=== PATIENT | male | born 1960 | race Caucasian/White ===

== ENCOUNTER 2016-08-04 20:28 | Emergency (ER) | payer SELFPAY ==
[2016-08-04 20:34] VITALS: BP 163/108
--- NOTE | 2016-08-04 20:45 | EDM.PDOC ---
ED HPI GENERAL MEDICAL PROBLEM - General Chief Complaint: Chest Pain Stated Complaint: [facility] Time Seen by Provider: 08/04/16 20:28 Source of Information: Reports: Patient, RN Notes Reviewed History Limitations: Reports: No Limitations - History of Present Illness INITIAL COMMENTS - FREE TEXT/NARRATIVE: The patient is brought by EMS with a complaint of a sharp/stabbing sensation to the anterior aspect of his left axilla, as well as posterior head and neck pain , that began last night around 22:00. It has been waxing and waning since. He states that it is a pain, not a discomfort. He has not found any modifiers. He also reports some tingling and numbness of his entire left upper extremity that began around 19:30 tonight and resolved just as he arrived at the ED. he reports associated dyspnea, nausea, and anxiety. He states that he feels warm, but he has not been diaphoretic. He states that his left anterior axillary pain is the same as that that he experienced in 2013 when he was taken to the [facility] and found to have a 75% LAD lesion, which was stented. He acknowledges that he did not have any ECG or cardiac enzyme abnormalities at that time, therefore it is not clear that the patient's pain was due to a coronary lesion. He states that following his coronary stents, he was on Plavix for one year, and is now off all medications. Treatments [employer]: Reports: Aspirin, Nitroglycerin Left Chest Pain Score (Numeric/FACES): 10 - Related Data Allergies Allergy/AdvReac Type Severity Reaction Status Date / Time Penicillins Allergy Cannot Verified 08/04/16 20:39 Remember Home Meds: Home Meds Orphenadrine [Norflex] 1 tab PO Q12H #20 tab.er 08/05/16 [Rx] Past Medical History HEENT History: Reports: Impaired Vision Cardiovascular History: Reports: CAD - Past Surgical History HEENT Surgical History: Reports: Tonsillectomy Cardiovascular Surgical History: Reports: Coronary Artery Stent (x 1, LAD, 2013) Social & Family History - Family History Family Medical History: Noncontributory - Tobacco Use Smoking Status *Q: Never Smoker - Caffeine Use Caffeine Use: Reports: None - Alcohol Use Alcohol Use History: Yes Alcohol Use Frequency: Socially - Recreational Drug Use Recreational Drug Use: No - Living Situation & Occupation Living situation: Reports: Single, Alone Occupation: Employed ([employer] ED ROS GENERAL - Review of Systems Review Of Systems: See Below Constitutional: Reports: No Symptoms HEENT: Reports: No Symptoms Respiratory: Reports: No Symptoms Cardiovascular: Reports: No Symptoms Endocrine: Reports: No Symptoms GI/Abdominal: Reports: Diarrhea (today) : Reports: No Symptoms Musculoskeletal: Reports: No Symptoms Skin: Reports: No Symptoms Neurological: Reports: No Symptoms Psychiatric: Reports: No Symptoms Hematologic/Lymphatic: Reports: No Symptoms Immunologic: Reports: No Symptoms ED EXAM, GENERAL - Physical Exam Exam: See Below Exam Limited By: No Limitations General Appearance: Alert, WD/WN, Moderate Distress (In pain) Eye Exam: Bilateral Eye: Normal Inspection Ears: Normal External Exam, Hearing Grossly Normal Ear Exam: Bilateral Ear: Auricle Normal Nose: Normal Inspection, No Blood Throat/Mouth: Normal Inspection, Normal Lips, Normal Voice, No Airway Compromise Head: Atraumatic, Normocephalic Neck: Normal Inspection, Full Range of Motion Respiratory/Chest: No Respiratory Distress, Lungs Clear, Normal Breath Sounds, No Accessory Muscle Use, Other (Reproducible tenderness to palpation of the left anterior axilla, down the left side of his chest and, especially, under the left costal margin in the left upper quadrant.) Cardiovascular: Normal Peripheral Pulses, Regular Rate, Rhythm, No Gallop, No JVD, No Murmur, No Rub Peripheral Pulses: 4+: Radial (L), Radial (R) GI/Abdominal: Normal Bowel Sounds, Soft, No Organomegaly, No Distention, No Abnormal Bruit, No Mass, Tender (Left upper quadrant, as above. Nontender elsewhere.) (Male) Exam: Deferred Rectal (Males) Exam: Deferred Back Exam: Normal Inspection, Full Range of Motion, NT Extremities: Normal Inspection, Normal Range of Motion, No Pedal Edema, Normal Capillary Refill Neurological: Alert, Oriented, Normal Cognition, No Motor/Sensory Deficits Psychiatric: Anxious Skin Exam: Warm, Dry, Intact, Normal Color, No Rash Lymphatic: No Adenopathy EKG INTERPRETATION EKG Date: 08/04/16 Time: 20:35 Rhythm: other (Sinus tachycardia) Rate (beats/min): [address] [place]: normal P-wave: present QRS: normal ST-T: normal QT: normal Comparison: NA - no prior EKG Course - Vital Signs Last Recorded V/S: Last Vital Signs Temp 37.1 C 08/04/16 20:29 Pulse 104 H 08/04/16 20:29 Resp 14 08/04/16 20:29 BP 163/108 H 08/04/16 20:29 Pulse Ox 94 L 08/04/16 20:29 - Orders/Labs/Meds Orders: Active Orders 24 hr Category Date Time Status EKG Documentation Completion [RC] STAT Care 08/04/16 20:42 Active Obando Catheter Insertion [Insert Urinary Catheter] [OM. Care 08/05/16 00:30 Ordered PC] Q24H Urinary Catheter Assessment [RC] ASDIRECTED Care 08/05/16 00:23 Active Abdomen Pelvis w Cont [CT] Stat Exams 08/04/16 22:04 Taken Chest 2V [CR] Stat Exams 08/04/16 20:42 Taken Sodium Chloride 0.9% [Normal Saline] 1,000 ml Med 08/04/16 22:15 Active IV ASDIRECTED Medication Orders Sodium Chloride (Normal Saline) 1,000 mls @ 150 mls/hr IV ASDIRECTED TREY Last Admin: 08/04/16 22:12 Dose: 150 mls/hr Labs: Laboratory Tests 08/04/16 08/04/16 08/04/16 Range/Units 20:55 20:55 20:55 WBC 4.42 (4.23-9.07) K/mm3 RBC 4.83 (4.63-6.08) M/mm3 Hgb 15.5 (13.7-17.5) gm/L Hct 44.6 (40.1-51.0) % MCV 92.3 H (79.0-92.2) fl MCH 32.1 (25.7-32.2) pg MCHC 34.8 (32.2-35.5) g/dl RDW Std Deviation 42.5 (35.1-43.9) fL Plt Count 240 (163-337) K/mm3 MPV 9.7 (9.4-12.3) fl Neutrophils % (Manual) 59 (40-60) % Band Neutrophils % 2 (0-10) % Lymphocytes % (Manual) 31 (20-40) % Atypical Lymphs % 0 % Monocytes % (Manual) 5 (2-10) % Eosinophils % (Manual) 1 (0.8-7.0) % Basophils % (Manual) 2 H (0.2-1.2) Platelet Estimate Adequate Plt Morphology Comment Normal RBC Morph Comment Normal PT 10.0 (8.0-13.0) SECONDS INR 0.92 APTT 26 (22-36) SECONDS D-Dimer, Quantitative 0.47 (0.19-0.59) mg/L Sodium 140 (136-145) mEq/L Potassium 3.8 (3.5-5.1) mEq/L Chloride 104 (98-107) mEq/L Carbon Dioxide 27 (21-32) mEq/L Anion Gap 12.8 (5-15) BUN 4 L (7-18) mg/dL Creatinine 0.8 (0.7-1.3) mg/dL Est Cr Clr Drug Dosing 106.46 mL/min Estimated GFR (MDRD) > 60 (>60) mL/min BUN/Creatinine Ratio 5.0 L (14-18) Glucose 111 H (74-106) mg/dL Calcium 8.4 L (8.5-10.1) mg/dL Total Bilirubin 0.3 (0.2-1.0) mg/dL AST 59 H (15-37) U/L ALT 59 (16-63) U/L Alkaline Phosphatase 85 (46-116) U/L Troponin I < 0.017 (0.00-0.056) ng/mL C-Reactive Protein (<1.0) mg/dL B-Natriuretic Peptide (0-100) pg/mL Total Protein 7.8 (6.4-8.2) g/dl Albumin 3.4 (3.4-5.0) g/dl Globulin 4.4 gm/dL Albumin/Globulin Ratio 0.8 L (1-2) Lipase 196 (73-393) U/L Urine Color (Yellow) Urine Appearance (Clear) Urine pH (5.0-8.0) Ur Specific [place] (1.005-1.030) Urine Protein (Negative) Urine Glucose (UA) (Negative) Urine Ketones (Negative) Urine Occult Blood (Negative) Urine Nitrite (Negative) Urine Bilirubin (Negative) Urine Urobilinogen (0.2-1.0) Ur Leukocyte Esterase (Negative) Urine RBC (0-5) /hpf Urine WBC (0-5) /hpf Ur Epithelial Cells (0-5) /hpf Urine Bacteria (FEW) /hpf Urine Mucus (FEW) /hpf 08/04/16 08/04/16 08/05/16 Range/Units 20:55 20:55 00:38 WBC (4.23-9.07) K/mm3 RBC (4.63-6.08) M/mm3 Hgb (13.7-17.5) gm/L Hct (40.1-51.0) % MCV (79.0-92.2) fl MCH (25.7-32.2) pg MCHC (32.2-35.5) g/dl RDW Std Deviation (35.1-43.9) fL Plt Count (163-337) K/mm3 MPV (9.4-12.3) fl Neutrophils % (Manual) (40-60) % Band Neutrophils % (0-10) % Lymphocytes % (Manual) (20-40) % Atypical Lymphs % % Monocytes % (Manual) (2-10) % Eosinophils % (Manual) (0.8-7.0) % Basophils % (Manual) (0.2-1.2) Platelet Estimate Plt Morphology Comment RBC Morph Comment PT (8.0-13.0) SECONDS INR APTT (22-36) SECONDS D-Dimer, Quantitative (0.19-0.59) mg/L Sodium (136-145) mEq/L Potassium (3.5-5.1) mEq/L Chloride (98-107) mEq/L Carbon Dioxide (21-32) mEq/L Anion Gap (5-15) BUN (7-18) mg/dL Creatinine (0.7-1.3) mg/dL Est Cr Clr Drug Dosing mL/min Estimated GFR (MDRD) (>60) mL/min BUN/Creatinine Ratio (14-18) Glucose (74-106) mg/dL Calcium (8.5-10.1) mg/dL Total Bilirubin (0.2-1.0) mg/dL AST (15-37) U/L ALT (16-63) U/L Alkaline Phosphatase (46-116) U/L Troponin I (0.00-0.056) ng/mL C-Reactive Protein < 0.2 (<1.0) mg/dL B-Natriuretic Peptide < 15 (0-100) pg/mL Total Protein (6.4-8.2) g/dl Albumin (3.4-5.0) g/dl Globulin gm/dL Albumin/Globulin Ratio (1-2) Lipase (73-393) U/L Urine Color Yellow (Yellow) Urine Appearance Clear (Clear) Urine pH 7.5 (5.0-8.0) Ur Specific [place] 1.015 (1.005-1.030) Urine Protein Negative (Negative) Urine Glucose (UA) Negative (Negative) Urine Ketones Negative (Negative) Urine Occult Blood Negative (Negative) Urine Nitrite Negative (Negative) Urine Bilirubin Negative (Negative) Urine Urobilinogen 0.2 (0.2-1.0) Ur Leukocyte Esterase Negative (Negative) Urine RBC Not seen (0-5) /hpf Urine WBC 0-5 (0-5) /hpf Ur Epithelial Cells 0-5 (0-5) /hpf Urine Bacteria Few (FEW) /hpf Urine Mucus Few (FEW) /hpf Meds: Medications Generic Name Dose Route Start Last Admin Trade Name Freq PRN Reason Stop Dose Admin Sodium Chloride 1,000 mls @ 150 mls/hr 08/04/16 22:15 08/04/16 22:12 Normal Saline IV 150 mls/hr ASDIRECTED TREY Administration Discontinued Medications Generic Name Dose Route Start Last Admin Trade Name Freq PRN Reason Stop Dose Admin Acetaminophen/Butalbital/Caffeine 1 tab 08/05/16 01:06 08/05/16 01:27 Fioricet 325-50-40 Mg PO 08/05/16 01:07 1 tab ONETIME ONE Administration Diatrizoate Meglum/Diatrizoate Sod 90 ml 08/04/16 22:46 08/04/16 23:43 Gastrografin 37% PO 08/04/16 22:47 90 ml ONETIME ONE Administration Hydromorphone HCl 0.5 mg 08/04/16 22:05 08/04/16 22:15 Dilaudid IVPUSH 08/04/16 22:06 0.5 mg ONETIME ONE Administration Hydromorphone HCl Confirm 08/04/16 22:10 08/04/16 22:17 Dilaudid Administered 08/04/16 22:11 Not Given Dose 0.5 mg .ROUTE .STK-MED ONE Sodium Chloride Confirm 08/04/16 22:10 08/04/16 22:16 Normal Saline Administered 08/04/16 22:11 Not Given Dose 1,000 mls @ as directed .ROUTE .STK-MED ONE Iopamidol 125 ml 08/04/16 22:46 08/04/16 23:44 Isovue-300 (61%) IVPUSH 08/04/16 22:47 125 ml ONETIME ONE Administration Ondansetron HCl 4 mg 08/04/16 22:02 08/04/16 22:12 Zofran IVPUSH 08/04/16 22:03 4 mg ONETIME ONE Administration Ondansetron HCl Confirm 08/04/16 22:10 08/04/16 22:16 Zofran Administered 08/04/16 22:11 Not Given Dose 4 mg .ROUTE .STK-MED ONE Ondansetron HCl 4 mg 08/04/16 23:30 08/04/16 23:31 Zofran IVPUSH 08/04/16 23:31 4 mg ONETIME ONE Administration Sodium Chloride 10 ml 08/04/16 22:46 08/04/16 23:44 Saline Flush FLUSH 08/04/16 22:47 10 ml ONETIME ONE Administration - Radiology Interpretation Free Text/Narrative:: Two-view chest radiograph appears to be grossly normal. Cardiac silhouette is within normal limits. No pulmonary vascular congestion. No pleural effusions. No focal infiltrate. No pneumothorax. Formal read per the Radiologist pending. CT scan of the abdomen and pelvis with oral and IV contrast is read by [facility] as: 1. Eccentric bladder wall thickening nonspecific possibly cystitis. 2. Bilateral hydroureteronephrosis most likely related to distended urinary bladder. - Re-Assessments/Exams Free Text/Narrative Re-Assessment/Exam: 08/05/16 00:[address] scan of the abdomen and pelvis findings a large urinary bladder along with hydroureter and hydronephrosis. The patient urinated after the CT scan and states that he does not feel the need to void, however, the bladder scan is indicating >999 ml. I have ordered a Obando catheter to leg bag. We will send a urinalysis. 08/05/16 01:27 The patient was complaining of a headache and posterior neck pain when he initially arrived, however, he is now stating his headache is quite severe and bitemporal. He does not have anemia or elevated LFTs, as would be expected with temporal arteritis, however, he does have hypoalbuminemia of 3.4, which is very nonspecific, but which would be expected with temporal arteritis. I have ordered a CRP. In meantime, I have also ordered Norflex. 08/05/16 01:53 The CRP returned as <0.2. While this does not completely eliminate the possibility of temporal arteritis, it makes it highly unlikely. The patient's headache is most likely tension type. I'm going to discharge the patient home with an e-prescription for Norflex, to help with his tension headache and musculoskeletal chest wall pain a, and I will refer him to Dr. Montana for followup for his urinary retention. Departure - Departure Time of Disposition: 01:57 Disposition: Home, Self-Care 01 Condition: fair Clinical Impression: Musculoskeletal chest pain, Tension headache, Urinary retention - Discharge Information Referrals: Jordan Montana MD [Physician] - PCP,None [Primary Care Provider] - Theresa Lai PA-C [Physician Buyer Agent] - Forms: ED Department Discharge Additional Instructions: You were seen in the emergency room for pain in the left armpit area, that extended down to your lower left ribs, along with a headache and neck pain. Workup in the ER included blood work, a urinalysis, an ECG, a chest x-ray, a CT scan of your abdomen and pelvis, and a bladder scan. Your workup showed significant distention of your urinary bladder, likely due to an enlarged prostate. A Obando catheter was placed in your bladder, which allows your bladder to drain. Followup with the Urologist Dr. Montana at the next available appointment. Your headache, neck pain, and chest pain are most likely due to muscle tension. You have been started on the muscle relaxant Norflex. Take one tablet every 12 hours, as prescribed. You may followup with Theresa Lai in the clinic as needed. If any other problems, please do not hesitate to return to the ER. - My Orders Last 24 Hours: My Active Orders 08/04/16 20:42 EKG Documentation Completion [RC] STAT Chest 2V [CR] Stat 08/04/16 22:04 Abdomen Pelvis w Cont [CT] Stat 08/04/16 22:15 Sodium Chloride 0.9% [Normal Saline] 1,000 ml IV ASDIRECTED 08/05/16 00:23 Urinary Catheter Assessment [RC] ASDIRECTED 08/05/16 00:30 Obando Catheter Insertion [Insert Urinary Catheter] [OM.PC] Q24H - Assessment/Plan Last 24 Hours: My Active Orders 08/04/16 20:42 EKG Documentation Completion [RC] STAT Chest 2V [CR] Stat 08/04/16 22:04 Abdomen Pelvis w Cont [CT] Stat 08/04/16 22:15 Sodium Chloride 0.9% [Normal Saline] 1,000 ml IV ASDIRECTED 08/05/16 00:23 Urinary Catheter Assessment [RC] ASDIRECTED 08/05/16 00:30 Obando Catheter Insertion [Insert Urinary Catheter] [OM.PC] Q24H
[2016-08-04] MEDS ORDERED: Ondansetron 4 MG/2 ML SDV IVPUSH ONE ×2 (22:02→23:30)
[2016-08-04] MEDS ORDERED: HYDROmorphone 0.5 MG/0.5 ML Syringe IVPUSH ONE (22:05)
[2016-08-04] MEDS ORDERED: Ondansetron 4 MG/2 ML SDV ONE (22:10)
[2016-08-04] MEDS ORDERED: HYDROmorphone 0.5 MG/0.5 ML Syringe ONE (22:10)
[2016-08-04] MEDS ORDERED: Sodium Chloride 0.9% 1,000 ML ONE (22:10)
[2016-08-04] MEDS ORDERED: Sodium Chloride 0.9% 1,000 ML IV SCH (22:15)
[2016-08-04] MEDS ORDERED: Sodium Chloride 0.9% 10 ML Syringe FLUSH ONE (22:46)
[2016-08-04] MEDS ORDERED: Iopamidol 612 MG/ML 150 ML Bottle IVPUSH ONE (22:46)
[2016-08-04] MEDS ORDERED: Diatrizoate Meglumine/Diatrizoate Sodium 37% 120 ML Bottle PO ONE (22:46)
[2016-08-05] MEDS ORDERED: Acetaminophen/Butalbital/Caffeine 325-50-40 MG Tab PO ONE (01:06)
--- NOTE | 2016-08-05 09:49 | CT ---
CT abdomen and pelvis Technique: Multiple axial sections were obtained from above the dome of the diaphragm inferiorly through the pubic symphysis. Intravenous and oral contrast was utilized. Comparison: No previous abdominal imaging. Findings: Visualized lung bases show nothing acute. Diffuse fatty infiltration identified throughout the liver. Spleen appears within normal limits. Adrenal glands show no nodule. Pancreas is within normal limits. Gallbladder contains no calcified gallstones. Kidneys show contrast enhancement without mass. Bilateral hydronephrosis is seen. Dilated urine filled bladder is noted. Hydronephrosis likely relates to the bladder distention. Bladder wall thickening is seen. Delayed images show stasis of contrast within the renal pelvis with no contrast excreted in the ureters or bladder. Prostate calcifications are seen. Abdominal aorta shows atherosclerotic change without aneurysmal dilatation. No retroperitoneal adenopathy or mesenteric abnormalities are seen. No pelvic mass or adenopathy is seen. Bone window settings were reviewed which appear within normal limits for the patient's age. Impression: 1. Dilated bladder with urine. Findings felt compatible with bladder outlet obstruction. Bilateral hydronephrosis is seen likely relating to the bladder outlet obstruction. 2. Bladder wall thickening most likely relating to the chronic bladder outlet obstruction. 3. Other incidental findings as described above. Diagnostic code #3 I agree with preliminary report issued by [employer] (preliminary report dictated on 08/05/16, 1:04 AM Central Time)
--- NOTE | 2016-08-05 09:49 | CR ---
Chest: Two views of the chest were obtained. Comparison: No previous study. Heart size and mediastinum are normal. Lungs are clear. Bony structures appear unremarkable. Impression: 1. Nothing acute is identified on two-view chest x-ray. Diagnostic code #1
== END 2016-08-05 02:59 | disposition home or self-care (01) ==
LOC: JD.ED 20:28
DX: R07.89 Other chest pain (principal); G44.209 Tension-type headache, unspecified, not intractable; R33.9 Retention of urine, unspecified; R00.0 Tachycardia, unspecified; N13.30 Unspecified hydronephrosis; I25.10 Atherosclerotic heart disease of native coronary artery without angina pectoris; Z95.5 Presence of coronary angioplasty implant and graft; Z79.82 Long term (current) use of aspirin; Z79.899 Other long term (current) drug therapy; Z88.0 Allergy status to penicillin
CPT/HCPCS: 36415; 51702; 51798; 71020; 74177; 80053; 81001; 83690; 83880; 84484; 85025; 85379; 85610; 85730; 86140; 93005; 96361; 96374; 96375; 96376; 99285; A9270; J1170; J2405; J7040; J7050; Q9963; Q9967

== ENCOUNTER 2016-08-05 09:05 | Emergency (ER) | payer SELFPAY ==
[2016-08-05] MEDS ORDERED: Sodium Chloride 0.9% 10 ML Syringe FLUSH PRN (09:38)
--- NOTE | 2016-08-05 09:54 | EDM.PDOC ---
ED HPI GENERAL MEDICAL PROBLEM - General Chief Complaint: Genitourinary Problem Stated Complaint: ABD PAIN AND BLOOD IN URINE Time Seen by Provider: 08/05/16 09:27 Source of Information: Reports: Patient History Limitations: Reports: No Limitations - History of Present Illness INITIAL COMMENTS - FREE TEXT/NARRATIVE: The patient presents with chest pain and hematuria. He was here last night for chest pain and abdominal pain. His EKG and troponin were negative. On CT he was found to have a distended bladder and a moura cath was inserted. Early this morning he started having hematuria. He presents with the same. He has pain in his penis at times. He still has pain in his left chest. The chest pain has been there for a few days. It hurts to take a deep breath. He has no fever, cough, congestion or runny nose. He has no edema in his legs or pain in his legs. He says back in 2013. He had a stent placed in his LAD. Onset: Gradual Duration: Day(s): Location: Reports: Chest, Abdomen Quality: Reports: Sharp Severity: Moderate Improves with: Reports: None Worsens with: Reports: Breathing Associated Symptoms: Reports: Chest Pain. Denies: Cough, Fever/Chills, Nausea/ Vomiting, Shortness of Breath Left Chest Pain Score (Numeric/FACES): 10 Penis Pain Score (Numeric/FACES): 10 - Related Data Allergies Allergy/AdvReac Type Severity Reaction Status Date / Time Penicillins Allergy Cannot Verified 08/04/16 20:39 Remember Home Meds: Home Meds Orphenadrine [Norflex] 1 tab PO Q12H #20 tab.er 08/05/16 [Rx] Past Medical History HEENT History: Reports: Impaired Vision Cardiovascular History: Reports: CAD - Infectious Disease History Infectious Disease History: Reports: Chicken Pox, Measles - Past Surgical History HEENT Surgical History: Reports: Tonsillectomy Cardiovascular Surgical History: Reports: Coronary Artery Stent Social & Family History - Family History Family Medical History: Noncontributory - Tobacco Use Smoking Status *Q: Never Smoker Second Hand Smoke Exposure: No - Caffeine Use Caffeine Use: Reports: None - Recreational Drug Use Recreational Drug Use: No - Living Situation & Occupation Living situation: Reports: Single, Alone Occupation: Employed ([employer]) ED ROS GENERAL - Review of Systems Review Of Systems: See Below Constitutional: Reports: No Symptoms HEENT: Reports: No Symptoms Respiratory: Reports: No Symptoms Cardiovascular: Reports: Chest Pain Endocrine: Reports: No Symptoms GI/Abdominal: Reports: Abdominal Pain : Reports: Hematuria, Other (Pain in his penis) Musculoskeletal: Reports: No Symptoms ED EXAM, GI/ABD - Physical Exam Exam: See Below Exam Limited By: No Limitations General Appearance: Alert, No Apparent Distress Ears: Normal External Exam Nose: Normal Inspection Throat/Mouth: Normal Inspection Head: Atraumatic, Normocephalic Neck: Normal Inspection Respiratory/Chest: No Respiratory Distress, Lungs Clear, Normal Breath Sounds Cardiovascular: Regular Rate, Rhythm, No Edema, No Murmur GI/Abdominal: Soft, Non-Tender, No Organomegaly, No Mass Extremities: Normal Inspection Course - Vital Signs Last Recorded V/S: Last Vital Signs Temp 96.3 F 08/05/16 09:15 Pulse 113 H 08/05/16 09:15 Resp 20 08/05/16 09:15 BP 148/86 H 08/05/16 09:15 Pulse Ox 95 08/05/16 09:15 - Orders/Labs/Meds Orders: Active Orders 24 hr Category Date Time Status Bladder Irrigation [RC] ONETIME Care 08/05/16 09:39 Active Cardiac Monitoring [RC] . DIRECTED Care 08/05/16 09:38 Active EKG Documentation Completion [RC] STAT Care 08/05/16 09:39 Active Insert Urinary Catheter [OM.PC] Q24H Care 08/05/16 13:00 Ordered Peripheral IV Care [RC] . DIRECTED Care 08/05/16 09:39 Active Urinary Catheter Assessment [RC] ASDIRECTED Care 08/05/16 12:57 Active HYDROmorphone [Dilaudid] Med 08/05/16 13:25 Once 1 mg IVPUSH ONETIME ONE Sodium Chloride 0.9% [Saline Flush] Med 08/05/16 09:38 Active 10 ml FLUSH ASDIRECTED PRN Peripheral IV Insertion Adult [OM.PC] Stat Oth 08/05/16 09:38 Ordered Medication Orders Sodium Chloride (Saline Flush) 10 ml FLUSH ASDIRECTED PRN PRN Reason: Keep Vein Open Last Admin: 08/05/16 09:45 Dose: 10 ml Labs: Laboratory Tests 08/05/16 08/05/16 Range/Units 09:45 09:45 WBC 12.55 H (4.23-9.07) K/mm3 RBC 4.87 (4.63-6.08) M/mm3 Hgb 15.6 (13.7-17.5) gm/L Hct 45.0 (40.1-51.0) % MCV 92.4 H (79.0-92.2) fl MCH 32.0 (25.7-32.2) pg MCHC 34.7 (32.2-35.5) g/dl RDW Std Deviation 42.4 (35.1-43.9) fL Plt Count 223 (163-337) K/mm3 MPV 10.0 (9.4-12.3) fl Neut % (Auto) 90.3 H (34.0-67.9) % Lymph % (Auto) 4.0 L (21.8-53.1) % [place] % (Auto) 5.2 L (5.3-12.2) % Eos % (Auto) 0 L (0.8-7.0) Baso % (Auto) 0.3 (0.1-1.2) % Neut # (Auto) 11.34 H (1.78-5.38) K/mm3 Lymph # (Auto) 0.50 L (1.32-3.57) K/mm3 [place] # (Auto) 0.65 (0.30-0.82) K/mm3 Eos # (Auto) 0.00 L (0.04-0.54) K/mm3 Baso # (Auto) 0.04 (0.01-0.08) K/mm3 Manual Slide Review Normal smear Sodium 136 (136-145) mEq/L Potassium 3.6 (3.5-5.1) mEq/L Chloride 100 (98-107) mEq/L Carbon Dioxide 26 (21-32) mEq/L Anion Gap 13.6 (5-15) BUN 6 L (7-18) mg/dL Creatinine 1.0 (0.7-1.3) mg/dL Est Cr Clr Drug Dosing 85.17 mL/min Estimated GFR (MDRD) > 60 (>60) mL/min BUN/Creatinine Ratio 6.0 L (14-18) Glucose 155 H (74-106) mg/dL Calcium 8.3 L (8.5-10.1) mg/dL Total Bilirubin 0.9 (0.2-1.0) mg/dL AST 58 H (15-37) U/L ALT 59 (16-63) U/L Alkaline Phosphatase 86 (46-116) U/L Troponin I < 0.017 (0.00-0.056) ng/mL Total Protein 7.7 (6.4-8.2) g/dl Albumin 3.5 (3.4-5.0) g/dl Globulin 4.2 gm/dL Albumin/Globulin Ratio 0.8 L (1-2) Meds: Medications Generic Name Dose Route Start Last Admin Trade Name Freq PRN Reason Stop Dose Admin Sodium Chloride 10 ml 08/05/16 09:38 08/05/16 09:45 Saline Flush FLUSH 10 ml ASDIRECTED PRN Administration Keep Vein Open Discontinued Medications Generic Name Dose Route Start Last Admin Trade Name Freq PRN Reason Stop Dose Admin Hydromorphone HCl 1 mg 08/05/16 09:55 08/05/16 10:35 Dilaudid IVPUSH 08/05/16 09:56 1 mg ONETIME ONE Administration - Re-Assessments/Exams Free Text/Narrative Re-Assessment/Exam: 08/05/16 09:56 I have ordered an IV saline lock, dilaudid 1mg IV, bladder irrigation, labs, and EKG. 08/05/16 13:11 His WBC is elevated at 12.55. His Hgb is normal at 15.6. His glucose is elevated at 155. His AST is 58. His troponin is negative. 08/05/16 13:26 His EKG shows nothing acute. His CT from yesterday shows dilated bladder with urine. Findings felt compatible with bladder outlet obstruction. Bilateral hydronephrosis is seen likely relating to the bladder outlet obstruction. Bladder wall thickening most likely relating to the chronic bladder outlet obstruction. I had my nurse irrigate him a few times and he still had moderate hematuria. I will have her replace the moura with a irrigation catheter to do 3 way continuous irrigation. I ordered some dilaudid 1mg for the pain. I called out hospitalist Dr Rutledge and she would accept him but she felt it may be better for him to go to [facility] where they have urology. I called Dr Trevizo at [facility] and he accepted the patient. Departure - Departure Time of Disposition: 13:35 Disposition: DC/Tfer to Acute Hospital 02 Condition: fair Clinical Impression: Musculoskeletal chest pain, Urinary retention, Hematuria, Bladder wall thickening - Discharge Information Forms: ED Department Discharge - My Orders Last 24 Hours: My Active Orders 08/05/16 09:38 Cardiac Monitoring [RC] . DIRECTED Sodium Chloride 0.9% [Saline Flush] 10 ml FLUSH ASDIRECTED PRN Peripheral IV Insertion Adult [OM.PC] Stat 08/05/16 09:39 Bladder Irrigation [RC] ONETIME EKG Documentation Completion [RC] STAT Peripheral IV Care [RC] . DIRECTED 08/05/16 12:57 Urinary Catheter Assessment [RC] ASDIRECTED 08/05/16 13:00 Insert Urinary Catheter [OM.PC] Q24H 08/05/16 13:25 HYDROmorphone [Dilaudid] 1 mg IVPUSH ONETIME ONE - Assessment/Plan Last 24 Hours: My Active Orders 08/05/16 09:38 Cardiac Monitoring [RC] . DIRECTED Sodium Chloride 0.9% [Saline Flush] 10 ml FLUSH ASDIRECTED PRN Peripheral IV Insertion Adult [OM.PC] Stat 08/05/16 09:39 Bladder Irrigation [RC] ONETIME EKG Documentation Completion [RC] STAT Peripheral IV Care [RC] . DIRECTED 08/05/16 12:57 Urinary Catheter Assessment [RC] ASDIRECTED 08/05/16 13:00 Insert Urinary Catheter [OM.PC] Q24H 08/05/16 13:25 HYDROmorphone [Dilaudid] 1 mg IVPUSH ONETIME ONE
[2016-08-05] MEDS ORDERED: HYDROmorphone 1 MG/ML Syringe IVPUSH ONE ×2 (09:55→13:25)
[2016-08-05] MEDS ORDERED: Lidocaine 2% Jelly 10 ML Urojet MUCMEM ONE (14:06)
[2016-08-05] MEDS ORDERED: Lidocaine 2% Jelly 10 ML Urojet ONE (14:07)
[2016-08-05 15:43] VITALS: BP 126/87
== END 2016-08-05 14:44 ==
LOC: JD.ED 09:05
DX: R07.89 Other chest pain (principal); R33.9 Retention of urine, unspecified; R31.9 Hematuria, unspecified; N32.9 Bladder disorder, unspecified; Z88.0 Allergy status to penicillin
CPT/HCPCS: 36415; 51700; 51702; 51798; 80053; 84484; 85025; 93005; 96374; 96376; 99285; J1170; J7050; 99284

== ENCOUNTER 2016-08-21 11:05 | Emergency (ER) | payer SELFPAY ==
[2016-08-21] MEDS ORDERED: Sodium Chloride 0.9% 10 ML Syringe FLUSH PRN (11:14)
[2016-08-21] MEDS ORDERED: HYDROmorphone 0.5 MG/0.5 ML Syringe IVPUSH ONE ×2 (11:20→14:21)
[2016-08-21] MEDS ORDERED: LORazepam 1 MG Tab PO ONE (11:20)
--- NOTE | 2016-08-21 11:23 | EDM.PDOC ---
ED HPI GENERAL MEDICAL PROBLEM - General Chief Complaint: Chest Pain Stated Complaint: [facility] Time Seen by Provider: 08/21/16 11:45 Source of Information: Reports: Patient, EMS, RN Notes Reviewed - History of Present Illness INITIAL COMMENTS - FREE TEXT/NARRATIVE: 55-year-old male has been brought in by ambulance with upper abdominal pain, nausea vomiting and anterior chest discomfort radiating to his left arm. He had onset of these symptoms about one hour ago. He does have history of coronary artery disease, does have a stent that was placed about 3 years ago. He does have a urinary catheter at this time that was supposed to been removed about 2 days ago. He states he was unable to get a cab to go to [facility] to have that removed as planned and previously ordered. That history is a bit complicated in that he was evaluated apparently here at this hospital and found to have urinary retention about 2 weeks ago. Initially was initially treated with just a straight catheter but then started having hematuria. This became severe, he eventually was transferred to [facility] and states he was in the hospital for about 4 days apparently with bladder irrigation until the hematuria resolved. He then was sent home with the current indwelling [place] catheter. States that the catheter is very bothersome to him. He started or drink more alcohol last evening hoping to get some relief from the discomfort. He was not having chest pain last evening or during the night. He has not been coughing any more than usual. No fever or chills. Chest Pain Score (Numeric/FACES): 9 - Related Data Allergies Allergy/AdvReac Type Severity Reaction Status Date / Time Penicillins Allergy Cannot Verified 08/21/16 11:13 Remember Home Meds: Home Meds . [No Known Home Meds] 08/21/16 [History] Past Medical History HEENT History: Reports: Impaired Vision Cardiovascular History: Reports: CAD - Infectious Disease History Infectious Disease History: Reports: Chicken Pox, Measles - Past Surgical History HEENT Surgical History: Reports: Tonsillectomy Cardiovascular Surgical History: Reports: Coronary Artery Stent Social & Family History - Family History Family Medical History: Noncontributory - Tobacco Use Smoking Status *Q: Never Smoker Second Hand Smoke Exposure: No - Caffeine Use Caffeine Use: Reports: None - Recreational Drug Use Recreational Drug Use: No - Living Situation & Occupation Living situation: Reports: Single, Alone Occupation: Employed ([employer] [employer]) ED ROS GENERAL - Review of Systems Review Of Systems: See Below Constitutional: Denies: Fever, Chills, Diaphoresis HEENT: Denies: Sinus Problem, Throat Pain Respiratory: Denies: Shortness of Breath, Pleuritic Chest Pain, Cough Cardiovascular: Reports: Chest Pain (Radiating to left arm). Denies: Edema GI/Abdominal: Reports: Abdominal Pain (Upper abdomen), Nausea, Vomiting (Mainly dry heaves) Musculoskeletal: Reports: Shoulder Pain, Arm Pain. Denies: Leg Pain Skin: Reports: No Symptoms Neurological: Reports: Dizziness. Denies: Trouble Speaking ED EXAM, GENERAL - Physical Exam Exam: See Below General Appearance: Alert, Anxious, Moderate Distress Eye Exam: Bilateral Eye: PERRL Throat/Mouth: Normal Inspection, Normal Oropharynx Neck: Supple, Full Range of Motion Respiratory/Chest: No Respiratory Distress, Lungs Clear, Normal Breath Sounds Cardiovascular: Regular Rate, Rhythm GI/Abdominal: Tender (Mild tenderness upper mid abdomen). No: Guarding Back Exam: Normal Inspection Extremities: Normal Inspection, Normal Range of Motion. No: Pedal Edema Neurological: Alert, Oriented, No Motor/Sensory Deficits Skin Exam: Warm, Dry, Normal Color EKG INTERPRETATION EKG Date: 08/21/16 Rhythm: NSR [place]: normal P-wave: present QRS: normal ST-T: elevated (slight elevation ant. leads) Course - Vital Signs Last Recorded V/S: Last Vital Signs Temp 97.6 F 08/21/16 11:08 Pulse 81 08/21/16 15:43 Resp 16 08/21/16 15:43 BP 151/85 H 08/21/16 15:43 Pulse Ox 100 08/21/16 15:43 - Orders/Labs/Meds Orders: Active Orders 24 hr Category Date Time Status EKG 12 Lead [EKG Documentation Completion] [RC] STAT Care 08/21/16 11:15 Active Peripheral IV Care [RC] . DIRECTED Care 08/21/16 11:15 Active Peripheral IV Insertion Adult [OM.PC] Stat Oth 08/21/16 11:15 Ordered Labs: Laboratory Tests 08/21/16 08/21/16 08/21/16 Range/Units 11:13 11:13 11:15 WBC 6.23 (4.23-9.07) K/mm3 RBC 4.57 L (4.63-6.08) M/mm3 Hgb 14.5 (13.7-17.5) gm/L Hct 42.5 (40.1-51.0) % MCV 93.0 H (79.0-92.2) fl MCH 31.7 (25.7-32.2) pg MCHC 34.1 (32.2-35.5) g/dl RDW Std Deviation 43.0 (35.1-43.9) fL Plt Count 390 H (163-337) K/mm3 MPV 9.5 (9.4-12.3) fl Neut % (Auto) 77.5 H (34.0-67.9) % Lymph % (Auto) 13.2 L (21.8-53.1) % [place] % (Auto) 7.5 (5.3-12.2) % Eos % (Auto) 0.2 L (0.8-7.0) Baso % (Auto) 1.4 H (0.1-1.2) % Neut # (Auto) 4.83 (1.78-5.38) K/mm3 Lymph # (Auto) 0.82 L (1.32-3.57) K/mm3 [place] # (Auto) 0.47 (0.30-0.82) K/mm3 Eos # (Auto) 0.01 L (0.04-0.54) K/mm3 Baso # (Auto) 0.09 H (0.01-0.08) K/mm3 Sodium 140 (136-145) mEq/L Potassium 3.6 (3.5-5.1) mEq/L Chloride 101 (98-107) mEq/L Carbon Dioxide 24 (21-32) mEq/L Anion Gap 18.6 H (5-15) BUN 4 L (7-18) mg/dL Creatinine 0.9 (0.7-1.3) mg/dL Est Cr Clr Drug Dosing 94.63 mL/min Estimated GFR (MDRD) > 60 (>60) mL/min BUN/Creatinine Ratio 4.4 L (14-18) Glucose 131 H (74-106) mg/dL Calcium 8.8 (8.5-10.1) mg/dL Total Bilirubin 0.4 (0.2-1.0) mg/dL AST 56 H (15-37) U/L ALT 48 (16-63) U/L Alkaline Phosphatase 85 (46-116) U/L Troponin I < 0.017 (0.00-0.056) ng/mL Total Protein 7.7 (6.4-8.2) g/dl Albumin 3.3 L (3.4-5.0) g/dl Globulin 4.4 gm/dL Albumin/Globulin Ratio 0.8 L (1-2) Lipase 132 (73-393) U/L Ethyl Alcohol 0.06 (0.00) gm% 08/21/16 Range/Units 14:30 WBC (4.23-9.07) K/mm3 RBC (4.63-6.08) M/mm3 Hgb (13.7-17.5) gm/L Hct (40.1-51.0) % MCV (79.0-92.2) fl MCH (25.7-32.2) pg MCHC (32.2-35.5) g/dl RDW Std Deviation (35.1-43.9) fL Plt Count (163-337) K/mm3 MPV (9.4-12.3) fl Neut % (Auto) (34.0-67.9) % Lymph % (Auto) (21.8-53.1) % [place] % (Auto) (5.3-12.2) % Eos % (Auto) (0.8-7.0) Baso % (Auto) (0.1-1.2) % Neut # (Auto) (1.78-5.38) K/mm3 Lymph # (Auto) (1.32-3.57) K/mm3 [place] # (Auto) (0.30-0.82) K/mm3 Eos # (Auto) (0.04-0.54) K/mm3 Baso # (Auto) (0.01-0.08) K/mm3 Sodium (136-145) mEq/L Potassium (3.5-5.1) mEq/L Chloride (98-107) mEq/L Carbon Dioxide (21-32) mEq/L Anion Gap (5-15) BUN (7-18) mg/dL Creatinine (0.7-1.3) mg/dL Est Cr Clr Drug Dosing mL/min Estimated GFR (MDRD) (>60) mL/min BUN/Creatinine Ratio (14-18) Glucose (74-106) mg/dL Calcium (8.5-10.1) mg/dL Total Bilirubin (0.2-1.0) mg/dL AST (15-37) U/L ALT (16-63) U/L Alkaline Phosphatase (46-116) U/L Troponin I < 0.017 (0.00-0.056) ng/mL Total Protein (6.4-8.2) g/dl Albumin (3.4-5.0) g/dl Globulin gm/dL Albumin/Globulin Ratio (1-2) Lipase (73-393) U/L Ethyl Alcohol (0.00) gm% Meds: Medications Discontinued Medications Generic Name Dose Route Start Last Admin Trade Name Freq PRN Reason Stop Dose Admin Hydromorphone HCl 0.5 mg 08/21/16 11:20 08/21/16 11:32 Dilaudid IVPUSH 08/21/16 11:21 0.5 mg ONETIME ONE Administration Hydromorphone HCl 0.5 mg 08/21/16 14:21 08/21/16 14:24 Dilaudid IVPUSH 08/21/16 14:22 0.5 mg ONETIME ONE Administration Sodium Chloride 1,000 mls @ 999 mls/hr 08/21/16 11:30 08/21/16 11:32 Normal Saline IV 999 mls/hr ONETIME TREY Administration Sodium Chloride 1,000 mls @ 150 mls/hr 08/21/16 13:00 08/21/16 12:52 Normal Saline IV 150 mls/hr ASDIRECTED TREY Administration Lorazepam 1 mg 08/21/16 11:25 08/21/16 11:32 Ativan IVPUSH 08/21/16 11:26 1 mg ONETIME ONE Administration Sodium Chloride 10 ml 08/21/16 11:14 08/21/16 11:27 Saline Flush FLUSH 10 ml ASDIRECTED PRN Administration Keep Vein Open - Re-Assessments/Exams Free Text/Narrative Re-Assessment/Exam: 08/21/16 12:01 Chest x-ray is normal, he does have upper abdominal discomfort radiating up into the chest. Very slight ST elevation anterior leads which is similar to prior EKG. He is very anxious and comfortable with a urinary catheter. He is requesting to have that out. That has been taken out. We've also given Ativan 1 mg IV, Dilaudid 0.5 mg IV. He did have Zofran 4 mg IV just prior to arrival. 08/21/16 12:54. Patient resting comfortably at this time, continues with sinus rhythm, no ectopy. Initial troponins come back normal other labs are relatively normal with some residual EtOH at 0.06. We'll plan to do a 3 hour troponin recheck. Chest x-ray also was normal 08/21/16 15:20. Repeat troponin has come back negative, patient is resting comfortably, chest discomfort is gone, his been in sinus rhythm no ectopy, discharge instructions as documented Departure - Departure Time of Disposition: 15:27 Disposition: Home, Self-Care 01 Condition: fair Clinical Impression: Atypical chest pain Instructions: Nonspecific Chest Pain Referrals: PCP,None [Primary Care Provider] - Forms: ED Department Discharge Additional Instructions: Rest, drink plenty of water to maintain hydration, avoid excess alcohol, continue current medications as prescribed, followup with your regular medical provider as needed, return to ED as needed if symptoms worsening in any way - My Orders Last 24 Hours: My Active Orders 08/21/16 11:15 EKG 12 Lead [EKG Documentation Completion] [RC] STAT Peripheral IV Care [RC] . DIRECTED Peripheral IV Insertion Adult [OM.PC] Stat - Assessment/Plan Last 24 Hours: My Active Orders 08/21/16 11:15 EKG 12 Lead [EKG Documentation Completion] [RC] STAT Peripheral IV Care [RC] . DIRECTED Peripheral IV Insertion Adult [OM.PC] Stat
[2016-08-21] MEDS ORDERED: LORazepam 2 MG/ML MDV IVPUSH ONE (11:25)
[2016-08-21] MEDS ORDERED: Sodium Chloride 0.9% 1,000 ML IV SCH ×2 (11:30→13:00)
--- NOTE | 2016-08-21 12:07 | CR ---
Chest: Frontal view of the chest was obtained. Comparison: Previous chest x-ray of 08/04/16. Heart size and mediastinum are normal. Lungs are clear. Bony structures are grossly intact. Impression: 1. Nothing acute is seen on frontal chest x-ray. Diagnostic code #1
[2016-08-21 15:46] VITALS: BP 151/85
== END 2016-08-21 15:53 | disposition home or self-care (01) ==
LOC: JD.ED 11:05
DX: R07.89 Other chest pain (principal); I25.10 Atherosclerotic heart disease of native coronary artery without angina pectoris; Z98.890 Other specified postprocedural states; Z95.5 Presence of coronary angioplasty implant and graft; Z88.0 Allergy status to penicillin
CPT/HCPCS: 36415; 71010; 80053; 83690; 84484; 85025; 93005; 96361; 96374; 96375; 96376; 99285; G0480; J1170; J2060; J7040; J7050; 99284